=== PATIENT | male | born 1995 | race African-American/Black ===

== ENCOUNTER 2022-08-04 04:05 | Emergency (ER) | payer OTHER ==
[2022-08-04 04:30] VITALS: BP 136/83; PULSE 95; RESP 18; TEMP 98.4; BMI 30.8
[2022-08-04] MEDS ORDERED: IBUPROFEN 400 MG TABLET (FP) PO ONE ×2 (04:53→04:57)
== END 2022-08-04 06:59 | disposition home or self-care (01) ==
LOC: JER 04:05
DX: M79.671 Pain in right foot (principal)
CPT/HCPCS: 73610-TC-RT-FY; 73630-TC-RT-FY; 99283-25

== ENCOUNTER 2023-01-09 01:42 | Emergency (ER) | payer OTHER ==
[2023-01-09 01:50] VITALS: BP 134/80; PULSE 79; RESP 18; TEMP 98.4; BMI 30.1
[2023-01-09] MEDS ORDERED: KETOROLAC TROMETHAMINE 30 MG/1 ML VIAL IM ONE (03:26)
[2023-01-09] MEDS ORDERED: KETOROLAC TROMETHAMINE 30 MG/1 ML VIAL ONE (03:33)
== END 2023-01-09 04:12 | disposition home or self-care (01) ==
LOC: JER 01:42
PROC: 3E0233Z Introduction of Anti-inflammatory into Muscle, Percutaneous Approach (ICD-10-PCS; principal; 2023-01-09)
DX: M25.512 Pain in left shoulder (principal)
CPT/HCPCS: 73030-TC-LT-FY; 73060-TC-LT-FY; 99284-25